=== PATIENT | female | born 2000 | race Caucasian/White ===

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

== ENCOUNTER 2021-04-29 15:07 | Emergency (ER) | payer MEDICAID ==
[2021-04-29 15:18] VITALS: BP 112/69
[2021-04-29] MEDS ORDERED: SODIUM CHLORIDE 0.9% 1000 ML 1,000 ML IV ONE (16:01)
[2021-04-29] MEDS ORDERED: KETOROLAC 30 MG/1 ML INJ IV ONE (16:03)
[2021-04-29] MEDS ORDERED: ONDANSETRON 4 MG/2 ML INJ IV ONE (16:03)
[2021-04-29 16:41] LABS: Basophils % (Auto) 0.7 % (0.0-1.8); Eosinophils % (Auto) 0.4 % (0.0-4.3); Hemoglobin 13.4 gm/dl (10.1-14.3); Lymphocytes # (Auto) 1.4 K/mm3 (1.2-5.4); Mean Corpuscular HGB Conc 33 % (30-34); Mean Corpuscular Volume 88 fl (79-97); Monocytes # (Auto) 0.5 K/mm3 (0.0-0.8); Monocytes % (Auto) 10.4 % (0.0-7.3); Platelet Count 122 K/mm3 (140-440); Red Blood Count 4.64 M/mm3 (3.65-5.03); Red Cell Distribution Width 13.3 % (13.2-15.2)
--- NOTE | 2021-04-29 16:45 | Emergency Department Report ---
ED Syncope HPI - General Chief Complaint: Chest Pain Stated Complaint: FAINTED YESTERDAY,SOB,CHEST PAIN Time Seen by Provider: 04/29/21 15:42 Source: patient Exam Limitations: no limitations - History of Present Illness Initial Comments: 20-year-old female no significant past medical history presents to the hospital complaining of generalized weakness, decreased appetite, x1 week. She has had watery stools approximately 2-3 times a day for the past week. She has not been eating much secondary to poor appetite but has been attempting to drink lots of water. She complains of intermittent pain across her chest described as a chest tightness that worsens with palpation and movement and causes her to feel short of breath. Yesterday while taking a shower she had a syncopal episode and her boyfriend caught her fall therefore she did not strike her head or injure herself during episode. She also complains of intermittent headache x1 week. She is currently on control pills. She denies history of PE/DVT, fever, recent travel, calf tenderness, leg edema, current cough, dysuria, frequency, nausea, or vomiting. She is not vaccinated for Covid. She denies loss of sense of taste or smell. She continues to feel weak and lightheaded. - Related Data Allergies/Adverse Reactions: Allergies No Known Allergies Allergy (Verified 09/21/20 12:12) Home Medications: Ambulatory Orders cefUROXime [Ceftin] 250 mg PO Q12H #7 tablet 12/16/17 DOXYCYCLINE Hyclate [Vibramycin CAP] 100 mg PO Q12HR #14 capsule 02/07/19 Ibuprofen [Motrin] 800 mg PO Q8HR PRN #30 tablet 02/07/19 Methylergonovine [Methergine] 0.2 mg PO Q8HR #6 tablet 02/07/19 Phenazopyridine [Pyridium] 100 mg PO Q8H #21 tab 07/17/19 Metoclopramide [Reglan] 10 mg PO TID PRN #12 tab 09/10/19 Acetaminophen [Tylenol] 500 mg PO Q6HR PRN #30 tablet 09/17/19 cephALEXin [Keflex] 500 mg PO Q8HR #30 cap 02/15/20 Hyoscyamine Subl [Levsin Sl 0.125 TAB] 0.125 mg SL Q6HR PRN #10 tab 09/21/20 Famotidine [Pepcid] 20 mg PO BID 5 Days #10 tablet 11/25/20 Ondansetron [Zofran Odt] 4 mg PO Q8HR PRN #15 tab.rapdis 11/25/20 Sucralfate [Carafate] 1 gm PO Q6HR #30 tablet 11/25/20 Ibuprofen [Motrin 600 MG tab] 600 mg PO Q8H PRN #30 tablet 04/29/21 Ondansetron [Zofran ODT TAB] 4 mg PO Q8HR PRN #14 tab.rapdis 04/29/21 ED Review of Systems ROS: Stated complaint: FAINTED YESTERDAY,SOB,CHEST PAIN Other details as noted in HPI Comment: All other systems reviewed and negative ED Past Medical Hx - Surgical History Hx Pacemaker: No Additional Surgical History: 2019, d&c 2019, 2020 - Social History Smoking Status: Never Smoker - Medications Home Medications: Home Medications Medication Instructions Recorded Confirmed Last Taken Type cefUROXime [Ceftin] 250 mg PO Q12H #7 tablet 12/16/17 Unknown Rx DOXYCYCLINE Hyclate [Vibramycin 100 mg PO Q12HR #14 capsule 02/07/19 Unknown Rx CAP] Ibuprofen [Motrin] 800 mg PO Q8HR PRN #30 tablet 02/07/19 Unknown Rx Methylergonovine [Methergine] 0.2 mg PO Q8HR #6 tablet 02/07/19 Unknown Rx Phenazopyridine [Pyridium] 100 mg PO Q8H #21 tab 07/17/19 Unknown Rx Metoclopramide [Reglan] 10 mg PO TID PRN #12 tab 09/10/19 Unknown Rx Acetaminophen [Tylenol] 500 mg PO Q6HR PRN #30 tablet 09/17/19 Unknown Rx cephALEXin [Keflex] 500 mg PO Q8HR #30 cap 02/15/20 Unknown Rx Hyoscyamine Subl [Levsin Sl 0.125 0.125 mg SL Q6HR PRN #10 tab 09/21/20 Unknown Rx TAB] Famotidine [Pepcid] 20 mg PO BID 5 Days #10 tablet 11/25/20 Unknown Rx Ondansetron [Zofran Odt] 4 mg PO Q8HR PRN #15 tab.rapdis 11/25/20 Unknown Rx Sucralfate [Carafate] 1 gm PO Q6HR #30 tablet 11/25/20 Unknown Rx Ibuprofen [Motrin 600 MG tab] 600 mg PO Q8H PRN #30 tablet 04/29/21 Unknown Rx Ondansetron [Zofran ODT TAB] 4 mg PO Q8HR PRN #14 tab.rapdis 04/29/21 Unknown Rx ED Physical Exam - General Limitations: No Limitations - Other Other exam information: General: No acute distress Head: Atraumatic Eyes: normal appearance Neck: Normal appearance, no midline tenderness, no nuchal rigidity Chest: Clear to auscultation bilaterally, reproducible bilateral anterior chest wall/pectoralis tenderness to palpation CV: Regular rate and rhythm Abdomen: Soft, normal bowel sounds, nontender, nondistended, no rebound or guarding Back: Normal inspection Extremity: Normal inspection, full range of motion, no calf tenderness or leg edema Neuro: Alert O x 3, no facial asymmetry, speech clear, no gross motor sensory deficit Psych: Appropriate behavior Skin: No rash ED Course Vital Signs 04/29/21 15:16 Temperature 98.4 F Pulse Rate 83 Respiratory 16 Rate Blood Pressure 112/69 O2 Sat by Pulse 100 Oximetry ED Medical Decision Making - Lab Data Result diagrams: 04/29/21 16:29 04/29/21 16:29 Lab Results 04/29/21 04/29/21 04/29/21 Range/Units 16:29 16:29 16:29 WBC 5.0 (4.5-11.0) K/mm3 RBC 4.64 (3.65-5.03) M/mm3 Hgb 13.4 (10.1-14.3) gm/dl Hct 41.0 (30.3-42.9) % MCV 88 (79-97) fl MCH 29 (28-32) pg MCHC 33 (30-34) % RDW 13.3 (13.2-15.2) % Plt Count 122 L (140-440) K/mm3 Lymph % (Auto) 28.0 (13.4-35.0) % [place] % (Auto) 10.4 H (0.0-7.3) % Eos % (Auto) 0.4 (0.0-4.3) % Baso % (Auto) 0.7 (0.0-1.8) % Lymph # (Auto) 1.4 (1.2-5.4) K/mm3 [place] # (Auto) 0.5 (0.0-0.8) K/mm3 Eos # (Auto) 0.0 (0.0-0.4) K/mm3 Baso # (Auto) 0.0 (0.0-0.1) K/mm3 Seg Neutrophils % 60.5 (40.0-70.0) % Seg Neutrophils # 3.0 (1.8-7.7) K/mm3 PT 13.4 (12.2-14.9) Sec. INR 0.92 (0.87-1.13) D-Dimer < 135.00 (0-234) ng/mlDDU Sodium 140 (137-145) mmol/L Potassium 4.0 (3.6-5.0) mmol/L Chloride 104.8 (98-107) mmol/L Carbon Dioxide 26 (22-30) mmol/L Anion Gap 13 mmol/L BUN 8 (7-17) mg/dL Creatinine 0.6 (0.6-1.2) mg/dL Estimated GFR > 60 ml/min BUN/Creatinine Ratio 13 % Glucose 89 (65-100) mg/dL Calcium 9.1 (8.4-10.2) mg/dL Total Bilirubin 0.20 (0.1-1.2) mg/dL AST 15 (5-40) units/L ALT 6 L (7-56) units/L Alkaline Phosphatase 88 (35-129) units/L Total Protein 6.9 (6.3-8.2) g/dL Albumin 4.4 (3.9-5) g/dL Albumin/Globulin Ratio 1.8 % HCG, Qual (Negative) 04/29/21 Range/Units 16:29 WBC (4.5-11.0) K/mm3 RBC (3.65-5.03) M/mm3 Hgb (10.1-14.3) gm/dl Hct (30.3-42.9) % MCV (79-97) fl MCH (28-32) pg MCHC (30-34) % RDW (13.2-15.2) % Plt Count (140-440) K/mm3 Lymph % (Auto) (13.4-35.0) % [place] % (Auto) (0.0-7.3) % Eos % (Auto) (0.0-4.3) % Baso % (Auto) (0.0-1.8) % Lymph # (Auto) (1.2-5.4) K/mm3 [place] # (Auto) (0.0-0.8) K/mm3 Eos # (Auto) (0.0-0.4) K/mm3 Baso # (Auto) (0.0-0.1) K/mm3 Seg Neutrophils % (40.0-70.0) % Seg Neutrophils # (1.8-7.7) K/mm3 PT (12.2-14.9) Sec. INR (0.87-1.13) D-Dimer (0-234) ng/mlDDU Sodium (137-145) mmol/L Potassium (3.6-5.0) mmol/L Chloride (98-107) mmol/L Carbon Dioxide (22-30) mmol/L Anion Gap mmol/L BUN (7-17) mg/dL Creatinine (0.6-1.2) mg/dL Estimated GFR ml/min BUN/Creatinine Ratio % Glucose (65-100) mg/dL Calcium (8.4-10.2) mg/dL Total Bilirubin (0.1-1.2) mg/dL AST (5-40) units/L ALT (7-56) units/L Alkaline Phosphatase (35-129) units/L Total Protein (6.3-8.2) g/dL Albumin (3.9-5) g/dL Albumin/Globulin Ratio % HCG, Qual Negative (Negative) - EKG Data -: EKG Interpreted by Pr EKG shows normal: sinus rhythm, intervals (qtc 401), QRS complexes (qrsd 76), ST-T waves Rate: normal (61) - EKG Data When compared to previous EKG there are: previous EKG unavailable - Radiology Data Radiology results: report reviewed CHEST 2 VIEWS INDICATION / CLINICAL INFORMATION: Chest pain and syncope. COMPARISON: 11/25/20. FINDINGS: SUPPORT DEVICES: None. HEART / MEDIASTINUM: The heart size and pulmonary vasculature are normal. The aorta is normal in caliber. LUNGS / PLEURA: No significant pulmonary or pleural abnormality. No pneumothorax. ADDITIONAL FINDINGS: No significant additional findings. IMPRESSION: No acute abnormality or significant change. - Medical Decision Making 20-year-old female presents to the hospital with headache, reproducible anterior chest wall pain, diarrhea, decreased p.o. intake, and lightheadedness with a syncopal episode yesterday. Patient does endorse decreased p.o. intake with diarrhea therefore dehydration suspected as a cause of syncope. Patient ED work-up does not reveal any significant abnormality and includes a negative EKG, D-dimer, chest x-ray, CBC, CMP, and . Vital signs are also unremarkable. Patient treated in the ED with 1 L of normal saline and Toradol for reproducible anterior chest wall tenderness. She will be discharged home with medications for symptomatic treatment for possible viral syndrome. Outpatient Covid test will be advised given that she is unvaccinated. PMD follow-up also advised Patient states she feels much better after IV fluid and Toradol Critical Care Time: No Critical care attestation.: If time is entered above; I have spent that time in minutes in the direct care of this critically ill patient, excluding procedure time. ED Disposition Clinical Impression: Generalized weakness, Syncope, Chest wall pain, Viral syndrome Disposition: 01 HOME / SELF CARE / HOMELESS Is pt being admited?: No Does the pt Need Aspirin: No Condition: Stable Instructions: Viral Illness, Adult, Syncope, Syncope (ED) Additional Instructions: It is suspected that you have a mild viral syndrome given your multiple symptoms. Take the medication as prescribed. I recommend that you take an outpatient Covid test to rule out Covid infection. Continue to drink plenty of fluids and follow-up with a primary care doctor. Return if symptoms worsen as indicated by your discharge instructions Prescriptions: Ibuprofen [Motrin 600 MG tab] 600 mg PO Q8H PRN #30 tablet PRN Reason: Pain Ondansetron [Zofran ODT TAB] 4 mg PO Q8HR PRN #14 tab.rapdis PRN Reason: nausea/vomiting Referrals: PRIMARY CAREMD [Primary Care Provider] - 3-5 Days SERGIO IDGGS MD [Staff Physician] - 3-5 Days [facility] [Provider Group] - 3-5 Days Time of Disposition: 18:18 Heart Score - HEART Score History: Slightly suspicious EKG: Normal Age: < 45 Risk factors: No known risk factors Troponin: < normal limit (no performed) HEART Score: 0 - EKG Read Time Time EKG Completed: 17:24 EKG Read Time: 17:28
[2021-04-29 16:51] LABS: INR 0.92 (0.87-1.13)
[2021-04-29 17:05] LABS: Alanine Aminotransferase 6 units/L (7-56); Albumin 4.4 g/dL (3.9-5); Blood Urea Nitrogen 8 mg/dL (7-17); Calcium 9.1 mg/dL (8.4-10.2); Hemolysis Index 7
[2021-04-29 17:06] LABS: BUN/Creatinine Ratio 13
--- NOTE | 2021-04-29 17:46 | XRay Report ---
CHEST 2 VIEWS INDICATION / CLINICAL INFORMATION: Chest pain and syncope. COMPARISON: 11/25/20. FINDINGS: SUPPORT DEVICES: None. HEART / MEDIASTINUM: The heart size and pulmonary vasculature are normal. The aorta is normal in [place] g[place]. LUNGS / PLEURA: No significant pulmonary or pleural abnormality. No pneumothorax. ADDITIONAL FINDINGS: No significant additional findings. IMPRESSION: No acute abnormality or significant change. Signer Name: Abilio Fletcher MD Signed: 04/29/2021 5:42 PM Workstation Name: [email or web address]
== END 2021-04-29 18:42 | disposition home or self-care (01) ==
LOC: ED 15:07
DX: R07.89 Other chest pain (principal); R55 Syncope and collapse; B34.9 Viral infection, unspecified; Z79.899 Other long term (current) drug therapy
CPT/HCPCS: 36415; 71046; 80053; 84703; 85025; 85379; 85610; 93005; 93010; 96361; 96374; 96375; 99284; J1885; J2405; J7030; Q0162

== ENCOUNTER 2021-07-22 18:35 | Emergency (ER) | payer MEDICAID ==
[2021-07-22 18:57] VITALS: BP 120/77
--- NOTE | 2021-07-22 19:22 | XRay Report ---
RIGHT HAND 3 VIEW(S) INDICATION / CLINICAL INFORMATION: hand injury COMPARISON: None available. FINDINGS: BONES / JOINT(S): No acute fracture or subluxation. No significant arthritis. SOFT TISSUES: No significant abnormality. ADDITIONAL FINDINGS: None. IMPRESSION: 1. No acute findings. Signer Name: Evan Adam MD Signed: 07/22/2021 7:17 PM Workstation Name: [id number]
== END 2021-07-23 02:20 | disposition left against medical advice (07) ==
LOC: ED 18:35
DX: S69.91XA Unspecified injury of right wrist, hand and finger(s), initial encounter (principal); Z53.21 Procedure and treatment not carried out due to patient leaving prior to being seen by health care provider; X58.XXXA Exposure to other specified factors, initial encounter; Y93.9 Activity, unspecified; Y92.89 Other specified places as the place of occurrence of the external cause; Y99.8 Other external cause status

== ENCOUNTER 2021-08-20 10:19 | Emergency (ER) | payer MEDICAID ==
[2021-08-20 14:32] LABS: Basophils % (Auto) 0.2 % (0.0-1.8); Hematocrit 40.4 % (30.3-42.9); Hemoglobin 13.9 gm/dl (10.1-14.3); Lymphocytes % (Auto) 11.8 % (13.4-35.0); Mean Corpuscular HGB Conc 34 % (30-34); Mean Corpuscular Volume 88 fl (79-97); Monocytes # (Auto) 1.1 K/mm3 (0.0-0.8); Monocytes % (Auto) 12.5 % (0.0-7.3); Platelet Count 99 K/mm3 (140-440); Red Blood Count 4.58 M/mm3 (3.65-5.03); Red Cell Distribution Width 13.4 % (13.2-15.2)
[2021-08-20 15:31] LABS: Alanine Aminotransferase 11 units/L (7-56); Albumin 4.5 g/dL (3.9-5); Blood Urea Nitrogen 5 mg/dL (7-17); Calcium 9.2 mg/dL (8.4-10.2); Hemolysis Index 127
[2021-08-20 15:36] LABS: BUN/Creatinine Ratio 10
[2021-08-20] MEDS ORDERED: ONDANSETRON 4 MG/2 ML INJ IV ONE (15:37)
[2021-08-20] MEDS ORDERED: SODIUM CHLORIDE 0.9% 1000 ML 1,000 ML IV ONE (15:37)
[2021-08-20] MEDS ORDERED: dexAMETHasone 20 MG/5 ML VIAL IV ONE (15:37)
--- NOTE | 2021-08-20 16:08 | XRay Report ---
CHEST 2 VIEWS INDICATION / CLINICAL INFORMATION: cough. COMPARISON: 04/29/21 FINDINGS: SUPPORT DEVICES: None. HEART / MEDIASTINUM: No significant abnormality. LUNGS / PLEURA: No significant pulmonary or pleural abnormality. No pneumothorax. ADDITIONAL FINDINGS: No significant additional findings. IMPRESSION: 1. No acute findings. No change. Signer Name: Polly Esquivel MD Signed: 08/20/2021 4:03 PM Workstation Name: [id number]
[2021-08-20 18:52] LABS: Bilirubin,Urine NEG (Negative); Blood,Urine NEG (Negative); Color,Urine Yellow (Yellow); Mucus,Urine FEW /HPF; Protein,Urine <15 mg/dL mg/dL (Negative)
[2021-08-20] MEDS ORDERED: LIDOCAINE VISCOUS 2% 15 ML ORAL LIQD PO ONE (19:06)
--- NOTE | 2021-08-20 19:42 | Emergency Department Report ---
ED General Adult HPI - General Chief complaint: Nausea/Vomiting/Diarrhea Stated complaint: GENERAL SYMPTOMS Source: patient Mode of arrival: Ambulatory Limitations: No Limitations - History of Present Illness Initial comments: Patient is a 21-year-old female with no past medical history who presents to the ED with complaint of acute onset persistent sore throat, nasal and sinus congestion, dysphagia, frontal sinus pressure and headache, persistent dry cough, nausea and vomiting and diffuse body aches and pains for the last 5 days. Patient states that the symptoms have worsened in the last 3 days such that she has not been able to eat anything because of dysphagia due to sore throat. Patient denies fever, chills, dizziness, syncope, chest pain or shortness of breath, back pain, dysuria, abdominal pain, diarrhea, change in vision, lightheadedness or vaginal bleeding. MD Complaint: Sore throat, nausea and vomiting, nasal and sinus congestion, body aches an -: Sudden, days(s) (5) Location: head, mouth, chest Radiation: non-radiation Severity scale (0 -10): 7 Quality: aching, sharp Consistency: constant Improves with: none Worsens with: eating Associated Symptoms: denies other symptoms, cough, headaches, loss of appetite, malaise, nausea/vomiting. denies: confusion, chest pain, diaphoresis, fever/chills, rash, seizure, shortness of breath, syncope, weakness Treatments Prior to Arrival: none - Related Data Previous Rx's Medication Instructions Recorded Last Taken Type cefUROXime [Ceftin] 250 mg PO Q12H #7 tablet 12/16/17 Unknown Rx DOXYCYCLINE Hyclate [Vibramycin 100 mg PO Q12HR #14 capsule 02/07/19 Unknown Rx CAP] Ibuprofen [Motrin] 800 mg PO Q8HR PRN #30 tablet 02/07/19 Unknown Rx Methylergonovine [Methergine] 0.2 mg PO Q8HR #6 tablet 02/07/19 Unknown Rx Phenazopyridine [Pyridium] 100 mg PO Q8H #21 tab 07/17/19 Unknown Rx Metoclopramide [Reglan] 10 mg PO TID PRN #12 tab 09/10/19 Unknown Rx Acetaminophen [Tylenol] 500 mg PO Q6HR PRN #30 tablet 09/17/19 Unknown Rx cephALEXin [Keflex] 500 mg PO Q8HR #30 cap 02/15/20 Unknown Rx Hyoscyamine Subl [Levsin Sl 0.125 0.125 mg SL Q6HR PRN #10 tab 09/21/20 Unknown Rx TAB] Famotidine [Pepcid] 20 mg PO BID 5 Days #10 tablet 11/25/20 Unknown Rx Sucralfate [Carafate] 1 gm PO Q6HR #30 tablet 11/25/20 Unknown Rx Ondansetron [Zofran ODT TAB] 4 mg PO Q8HR PRN #14 tab.rapdis 04/29/21 Unknown Rx Azithromycin [Zithromax Z-CARLIE] 250 mg PO DAILY #6 tab 08/20/21 Unknown Rx Cetirizine HCl [Zyrtec 10mg tab] 10 mg PO DAILY #30 tab 08/20/21 Unknown Rx Ibuprofen [Motrin 600 MG tab] 600 mg PO Q8H PRN #30 tablet 08/20/21 Unknown Rx Lidocaine Viscous 2% 10 ml PO Q6H PRN #120 ml 08/20/21 Unknown Rx Ondansetron [Zofran ODT TAB] 4 mg PO Q8HR PRN #15 tab.rapdis 08/20/21 Unknown Rx predniSONE [Deltasone] 40 mg PO QDAY #10 tab 08/20/21 Unknown Rx Allergies Allergy/AdvReac Type Severity Reaction Status Date / Time No Known Allergies Allergy Verified 08/20/21 10:32 ED Review of Systems ROS: Stated complaint: GENERAL SYMPTOMS Other details as noted in HPI Constitutional: malaise, weakness. denies: chills, fever Eyes: denies: eye pain, eye discharge, vision change ENT: throat pain, congestion, other (Frontal sinus pressure). denies: ear pain Respiratory: cough. denies: shortness of breath, wheezing Cardiovascular: denies: chest pain, palpitations Endocrine: no symptoms reported Gastrointestinal: nausea, vomiting. denies: abdominal pain, diarrhea Genitourinary: denies: urgency, dysuria, discharge Musculoskeletal: denies: back pain, joint swelling, arthralgia Skin: denies: rash, lesions, change in color, change in hair/nails Neurological: headache. denies: weakness, paresthesias Psychiatric: denies: anxiety, depression Hematological/Lymphatic: denies: easy bleeding, easy bruising ED Past Medical Hx - Surgical History Hx Pacemaker: No Additional Surgical History: 2019, d&c 2019, 2020 - Social History Smoking Status: Never Smoker - Medications Home Medications: Home Medications Medication Instructions Recorded Confirmed Last Taken Type cefUROXime [Ceftin] 250 mg PO Q12H #7 tablet 12/16/17 Unknown Rx DOXYCYCLINE Hyclate [Vibramycin 100 mg PO Q12HR #14 capsule 02/07/19 Unknown Rx CAP] Ibuprofen [Motrin] 800 mg PO Q8HR PRN #30 tablet 02/07/19 Unknown Rx Methylergonovine [Methergine] 0.2 mg PO Q8HR #6 tablet 02/07/19 Unknown Rx Phenazopyridine [Pyridium] 100 mg PO Q8H #21 tab 07/17/19 Unknown Rx Metoclopramide [Reglan] 10 mg PO TID PRN #12 tab 09/10/19 Unknown Rx Acetaminophen [Tylenol] 500 mg PO Q6HR PRN #30 tablet 09/17/19 Unknown Rx cephALEXin [Keflex] 500 mg PO Q8HR #30 cap 02/15/20 Unknown Rx Hyoscyamine Subl [Levsin Sl 0.125 0.125 mg SL Q6HR PRN #10 tab 09/21/20 Unknown Rx TAB] Famotidine [Pepcid] 20 mg PO BID 5 Days #10 tablet 11/25/20 Unknown Rx Sucralfate [Carafate] 1 gm PO Q6HR #30 tablet 11/25/20 Unknown Rx Ondansetron [Zofran ODT TAB] 4 mg PO Q8HR PRN #14 tab.rapdis 04/29/21 Unknown Rx Azithromycin [Zithromax Z-CARLIE] 250 mg PO DAILY #6 tab 08/20/21 Unknown Rx Cetirizine HCl [Zyrtec 10mg tab] 10 mg PO DAILY #30 tab 08/20/21 Unknown Rx Ibuprofen [Motrin 600 MG tab] 600 mg PO Q8H PRN #30 tablet 08/20/21 Unknown Rx Lidocaine Viscous 2% 10 ml PO Q6H PRN #120 ml 08/20/21 Unknown Rx Ondansetron [Zofran ODT TAB] 4 mg PO Q8HR PRN #15 tab.rapdis 08/20/21 Unknown Rx predniSONE [Deltasone] 40 mg PO QDAY #10 tab 08/20/21 Unknown Rx ED Physical Exam - General Limitations: No Limitations General appearance: alert, in no apparent distress - Head Head exam: Present: atraumatic, normocephalic, normal inspection - Eye Eye exam: Present: normal appearance, PERRL, EOMI Pupils: Present: normal accommodation - ENT ENT exam: Present: mucous membranes moist, TM's normal bilaterally, normal external ear exam, other (Grossly congested nasal passages; palpable frontal and maxillary sinus tenderness; erythematous oropharynx, no exudates) - Neck Neck exam: Present: normal inspection, full ROM, lymphadenopathy (Palpable anterior cervical lymphadenopathy) - Respiratory Respiratory exam: Present: normal lung sounds bilaterally. Absent: respiratory distress, wheezes, rales, rhonchi, chest wall tenderness, accessory muscle use, decreased breath sounds, prolonged expiratory - Cardiovascular Cardiovascular Exam: Present: regular rate, normal rhythm, normal heart sounds. Absent: systolic murmur, diastolic murmur, rubs, gallop - GI/Abdominal GI/Abdominal exam: Present: soft, normal bowel sounds. Absent: tenderness, guarding, rebound, rigid, hyperactive bowel sounds, hypoactive bowel sounds, organomegaly - Extremities Exam Extremities exam: Present: normal inspection, full ROM, normal capillary refill. Absent: tenderness - Back Exam Back exam: Present: normal inspection, full ROM. Absent: tenderness, CVA tenderness (R), CVA tenderness (L), muscle spasm, paraspinal tenderness, vertebral tenderness - Neurological Exam Neurological exam: Present: alert, oriented X3, CN II-XII intact, normal gait, reflexes normal - Psychiatric Psychiatric exam: Present: normal affect, normal mood - Skin Skin exam: Present: warm, dry, intact, normal color. Absent: rash ED Course Vital Signs 08/20/21 10:29 Temperature 98.5 F Pulse Rate 98 H Respiratory 16 Rate Blood Pressure 111/78 [Right] O2 Sat by Pulse 99 Oximetry ED Medical Decision Making - Lab Data Result diagrams: 08/20/21 12:33 08/20/21 12:33 - Radiology Data Radiology results: report reviewed, image reviewed [facility] [address] [place] [address] XRay Report Signed Patient: CARLYN PEÑA MR#: [id number] : 2000 Acct:[id number] Age/Sex: 21 / F ADM Date: 08/20/21 Loc: ED Attending Dr: Ordering Physician: JOZEF MORTON Date of Service: 08/20/21 Procedure(s): XR chest routine 2V Accession Number(s): [id number] cc: JOZEF MORTON Fluoro Time In Minutes: CHEST 2 VIEWS INDICATION / CLINICAL INFORMATION: cough. COMPARISON: 04/29/21 FINDINGS: SUPPORT DEVICES: None. HEART / MEDIASTINUM: No significant abnormality. LUNGS / PLEURA: No significant pulmonary or pleural abnormality. No pneumothorax. ADDITIONAL FINDINGS: No significant additional findings. IMPRESSION: 1. No acute findings. No change. Signer Name: Polly Esquivel MD Signed: 08/20/2021 4:03 PM Workstation Name: [id number] Transcribed By: DT Dictated By: Jasbir Esquivel MD Electronically Authenticated By: Jasbir Esquivel MD Signed Date/Time: 08/20/211602 DD/ 01 TD/TT: - Medical Decision Making This is a 21-year-old female with no past medical history who presents to the ED with complaint of acute onset persistent sore throat, nasal and sinus congestion, dysphagia, frontal sinus pressure and headache, persistent dry cough, nausea and vomiting and diffuse body aches and pains for the last 5 days. Patient states that the symptoms have worsened in the last 3 days such that she has not been able to eat anything because of dysphagia due to sore throat. In the ED, patient is alert and oriented x3 and is not in any distress. Patient is hemodynamically stable. Lab test results were reviewed and are all nonactionable. Chest x-ray showed no acute cardiopulmonary abnormalities or pneumonitis. Patient was treated for pain in the ED, also received Decadron, pain medications and normal saline 1 L IV bolus x1 as well as antiemetics. On reevaluation, patient felt better, nausea and vomiting resolved and patient passed oral fluid challenge in the ED. Patient was discharged home on medications and advised to follow-up with her primary care physician in 7 to 10 days for reevaluation or return to the ED immediately if symptoms get worse. - Differential Diagnosis Sinusitis; URI; pharyngitis; tonsillitis; bronchitis; dehydration Critical care attestation.: If time is entered above; I have spent that time in minutes in the direct care of this critically ill patient, excluding procedure time. ED Disposition Clinical Impression: Dehydration, Acute bacterial tonsillitis, Acute upper respiratory infection, Sinus headache, Nausea and vomiting in adult Acute frontal sinusitis Qualifiers: Recurrence: non-recurrent Qualified Code(s): J01.10 - Acute frontal sinusitis, unspecified Disposition: 01 HOME / SELF CARE / HOMELESS Is pt being admited?: No Does the pt Need Aspirin: No Condition: Stable Instructions: Sinusitis, Adult, [id number], Dehydration, Adult, [id number], Upper Respiratory Infection, Adult, [id number], Nausea and Vomiting, Adult, [id number], Tonsillitis, [id number] Additional Instructions: All lab test results were reviewed and are all nonactionable. Chest x-ray showed no acute cardiopulmonary abnormalities or pneumonitis. Therefore your symptoms are likely due to acute upper respiratory infection, sinusitis and tonsillitis. Therefore take medications with food, drink plenty of fluids and follow-up with your primary care physician in 7 to 10 days for reevaluation. Return to the ED immediately if symptoms get worse. Prescriptions: predniSONE [Deltasone] 40 mg PO QDAY #10 tab Lidocaine Viscous 2% 10 ml PO Q6H PRN #120 ml PRN Reason: Sore Throat Ibuprofen [Motrin 600 MG tab] 600 mg PO Q8H PRN #30 tablet PRN Reason: Pain Azithromycin [Zithromax Z-CARLIE] 250 mg PO DAILY #6 tab Ondansetron [Zofran ODT TAB] 4 mg PO Q8HR PRN #15 tab.rapdis PRN Reason: Nausea Cetirizine HCl [Zyrtec 10mg tab] 10 mg PO DAILY #30 tab Referrals: [facility] [Provider Group] - 7-10 days Forms: Work/School Release Form(ED) Time of Disposition: 19:43 Print Language: ZAMBIAN
[2021-08-20 20:11] VITALS: BP 117/80
== END 2021-08-20 20:11 | disposition home or self-care (01) ==
LOC: ED 10:19
DX: E86.0 Dehydration (principal); J03.90 Acute tonsillitis, unspecified; J06.9 Acute upper respiratory infection, unspecified; R11.2 Nausea with vomiting, unspecified; J32.9 Chronic sinusitis, unspecified
CPT/HCPCS: 36415; 71046; 80053; 81001; 82150; 83690; 85025; 96361; 96374; 96375; 99284; J1100; J2405; J7030